=== PATIENT | male | born 1955 | race American Indian/Alaskan Native ===

== ENCOUNTER 2019-06-04 12:21 | Emergency (ER) | payer MEDICARE ==
[2019-06-04 12:44] VITALS: BP 129/79
[2019-06-04] MEDS ORDERED: XYLOCAINE 1% 20 mL INFILTRATI ONE (14:00)
--- NOTE | 2019-06-04 14:00 | Emergency Department Report ---
ED Laceration HPI - HPI Chief Complaint: Wound/Laceration Stated Complaint: LT FOOT LAC Time Seen by Provider: 06/04/19 13:07 Location: Lower Extremity (left little toe) Severity: mild Tetanus Status: Not up to Date Laceration Symptoms: Yes Pain (mild), No Foreign Body Sensation, No Numbness, No Weakness ED Review of Systems ROS: Stated complaint: LT FOOT LAC Other details as noted in HPI Comment: All other systems reviewed and negative ED Past Medical Hx - Past Medical History Previous Medical History?: Yes Hx Hypertension: Yes Hx CVA: Yes Hx Diabetes: Yes - Surgical History Past Surgical History?: Yes Additional Surgical History: fifth digit to right foot - Social History Smoking Status: Current Every Day Smoker Substance Use Type: None - Medications Home Medications: Home Medications Medication Instructions Recorded Confirmed Last Taken Type Mupirocin [Bactroban 2% OINT] 1 applic TP TID 7 Days #1 tube 06/04/19 Unknown Rx Laceration Physical Exam - Exam General: Vital signs noted. No distress. Alert and acting appropriately. Wound Length (cm): 2 Laceration Location: Lower Extremity (plantar side of left 5th toe at the MTP joint; no active bleeding or foreign body noted; +full ROM noted) Laceration Exam: No Foreign Body, No Exposed Tendon, Vessel, or Nerve, No Tendon Injury, No Normal Distal CMS ED Course Vital Signs 06/04/19 12:42 Temperature 98.5 F Pulse Rate 77 Respiratory 16 Rate Blood Pressure 129/79 O2 Sat by Pulse 100 Oximetry - Procedure Description Procedures done: laceration repair - Laceration /Wound Repair Left Toe Wound Length (cm): 2 Wound's Depth, Shape: linear Wound Explored: clean Betadine Prep?: Yes Anesthesia: 1% Lidocaine Wound Repaired With: sutures Suture Size/Type: 5:0, proline Number of Sutures: 5 (continuous) Layer Closure?: No Sterile Dressing Applied?: Yes ED Medical Decision Making - Medical Decision Making Lac to left little toe. Pt states lac due to hitting toe on edge of door. No foreign bodies noted. Wound repaired without immediate complications. Will d/c back to [facility] with mupirocin. Pt to return to ED in 10 days for suture removal. Discussed wound care, signs of infection, and strict return precautions in detail. Critical care attestation.: If time is entered above; I have spent that time in minutes in the direct care of this critically ill patient, excluding procedure time. ED Disposition Clinical Impression: Laceration of left great toe w/o foreign body w/o damage to nail Qualifiers: Encounter type: initial encounter Qualified Code(s): S91.112A - Laceration without foreign body of left great toe without damage to nail, initial encounter Disposition: DC-01 TO HOME OR SELFCARE Is pt being admited?: No Condition: Stable Instructions: Laceration (ED), Suture Care (ED) Additional Instructions: return to ED in 10 days for suture removal. Prescriptions: Mupirocin [Bactroban 2% OINT] 1 applic TP TID 7 Days #1 tube
[2019-06-04] MEDS ORDERED: TENIVAC IM ONE (14:07)
[2019-06-04] MEDS ORDERED: NACL 0.9% IR ONE (14:09)
[2019-06-04] MEDS ORDERED: BOOSTRIX IM ONE (14:36)
== END 2019-06-04 19:12 | disposition home or self-care (01) ==
LOC: ED 12:21
DX: S91.112A Laceration without foreign body of left great toe without damage to nail, initial encounter (principal); I10 Essential (primary) hypertension; E11.9 Type 2 diabetes mellitus without complications; F17.200 Nicotine dependence, unspecified, uncomplicated; Z86.73 Personal history of transient ischemic attack (TIA), and cerebral infarction without residual deficits
CPT/HCPCS: 90471; 90714; 90715